=== PATIENT | male | born 1985 | race Hispanic/Latino ===

== ENCOUNTER → 2023-07-01 | Emergency (ER) | payer SELFPAY ==
[~2023-07-01] MED LIST: CEFTRIAXONE 1000 MG/VIAL ONE; KETOROLAC 30 MG/ML INJ ONE; MORPHINE 4 MG/ML SYR ONE; NA CHLORIDE 0.9% 2,000 ML ONE; ONDANSETRON 4 MG/2 ML VIAL ONE; POTASSIUM 25 MEQ EFFERV TAB ONE; PROMETHAZINE INJ 25 MG/ML AMP ONE
--- OUTSIDE RECORDS SUMMARY | 2023-07-01 01:48 | XMS REPORT | Continuity of Care Document ---
Author Name Unknown Address [address] [place] [address] [facility] Address [address] [place] [address] [address] [place] [address] Care Team Providers Care Senior Environmental Practice Leader Name Role Phone Unavailable Unavailable Unavailable Encounters Start Date/Time End Date/Time Encounter Type Admission Type Attending Clinicians Care Facility Care Department Encounter ID Source 2022-11-27 09:21:48 2022-11-27 09:21:48 Outpatient [facility] [id number] Sant[address] Clifton
[2023-07-01 02:25] LABS: Absolute Lymphocytes (CBC) 3.9 K/uL (0.7-4.9); Hematocrit 42.1 % (39.6-49.0); MCV 87.1 fL (80-100); MPV 8.4 fL (7.6-11.3); Platelets 273 thou/uL (152-406); RBC Red Blood Cell Count 4.83 M/uL (4.33-5.43)
[2023-07-01 02:52] LABS: Albumin 3.9 g/dL (3.4-5.0); Bilirubin Total 0.4 mg/dL (0.2-1.0); Potassium 3.2 mEq/L (3.5-5.1); Protein, Total 7.2 g/dL (6.4-8.2)
--- NOTE | 2023-07-01 03:02 | EDPHYS ---
Physician Documentation [facility] Name: Geraldo Dougherty Jr Age: 38 yrs Sex: Male : 1985 Arrival Date: 07/01/2023 Time: 01:45 Bed 13 Private MD: ED Physician Arya High HPI: 07/01 02:05 This 38 yrs old Male presents to ER via Ambulatory with complaints of vinay Abdominal Pain, PT IS IN ALOT OF PAIN ON THE RIGHT SIDE. 02:05 The patient presents with abdominal pain in the right upper quadrant, right lower vinay quadrant. Onset: The symptoms/episode began/occurred just prior to arrival. The patient complains of pain in the right mid back and right low back. The pain radiates to the right mid back and right low back. Modifying factors: The symptoms are alleviated by nothing. the symptoms are aggravated by nothing. The symptoms radiate to the right flank. Associated signs and symptoms: Pertinent positives: nausea. Severity of pain: At its worst the pain was moderate in the emergency department the pain is unchanged. Historical: - Allergies: 01:55 No Known Allergies; rv - Home Meds: 01:55 None [Active]; rv - PMHx: 01:55 None; rv - PSHx: 01:55 None; rv - Immunization history:: Adult Immunizations up to date. - Social history:: Smoking status: Patient denies any tobacco usage or history of. - Family history:: not pertinent. ROS: 02:05 Constitutional: Negative for fever, chills, and weight loss, Eyes: Negative for injury, vinay pain, redness, and discharge, ENT: Negative for injury, pain, and discharge, Neck: Negative for injury, pain, and swelling, Cardiovascular: Negative for chest pain, palpitations, and edema, Respiratory: Negative for shortness of breath, cough, wheezing, and pleuritic chest pain, Back: Negative for injury and pain, : Negative for injury, bleeding, discharge, and swelling, MS/Extremity: Negative for injury and deformity, Skin: Negative for injury, rash, and discoloration, Neuro: Negative for headache, weakness, numbness, tingling, and seizure, Psych: Negative for depression, anxiety, suicide ideation, homicidal ideation, and hallucinations, Allergy/Immunology: Negative for hives, rash, and allergies, Endocrine: Negative for neck swelling, polydipsia, polyuria, polyphagia, and marked weight changes, 02:05 Abdomen/GI: Positive for abdominal pain, nausea and vomiting, of the anterior aspect of right lateral abdomen, posterior aspect of right lateral abdomen, right upper quadrant and right lower quadrant, Exam: 02:05 Constitutional: This is a well developed, well nourished patient who is awake, alert, vinay and in no acute distress. Head/Face: Normocephalic, atraumatic. Eyes: Pupils equal round and reactive to light, extra-ocular motions intact. Lids and lashes normal. Conjunctiva and sclera are non-icteric and not injected. Cornea within normal limits. Periorbital areas with no swelling, redness, or edema. ENT: Nares patent. No nasal discharge, no septal abnormalities noted. Tympanic membranes are normal and external auditory canals are clear. Oropharynx with no redness, swelling, or masses, exudates, or evidence of obstruction, uvula midline. Mucous membranes moist. Neck: Trachea midline, no thyromegaly or masses palpated, and no cervical lymphadenopathy. Supple, full range of motion without nuchal rigidity, or vertebral point tenderness. No Meningismus. Chest/axilla: Normal chest wall appearance and motion. Nontender with no deformity. No lesions are appreciated. Cardiovascular: Regular rate and rhythm with a normal S1 and S2. No gallops, murmurs, or rubs. Normal PMI, no JVD. No pulse deficits. Respiratory: Lungs have equal breath sounds bilaterally, clear to auscultation and percussion. No rales, rhonchi or wheezes noted. No increased work of breathing, no retractions or nasal flaring. Back: No spinal tenderness. No costovertebral tenderness. Full range of motion. Male : Normal genitalia with no discharge or lesions. Skin: Warm, dry with normal turgor. Normal color with no rashes, no lesions, and no evidence of cellulitis. MS/ Extremity: Pulses equal, no cyanosis. Neurovascular intact. Full, normal range of motion. Neuro: Awake and alert, GCS 15, oriented to person, place, time, and situation. Cranial nerves II-XII grossly intact. Motor strength 5/5 in all extremities. Sensory grossly intact. Cerebellar exam normal. Normal gait. Psych: Awake, alert, with orientation to person, place and time. Behavior, mood, and affect are within normal limits. 02:05 Abdomen/GI: Inspection: abdomen appears normal, Bowel sounds: normal, Liver: no appreciated palpable abnormalities, Hernia: not appreciated, Vital Signs: 01:54 Weight 81.65 kg; Height 5 ft. 8 in. ; rv 01:56 BP 124 / 78; Pulse 64; Resp 16; Temp 98; Pulse Ox 99% ; rv 01:57 BP 124 / 78 Supine; Pulse 66; Resp 18; Temp 98.2(O); Pulse Ox 100% on R/A; Weight 81.65 oe kg; Height 5 ft. 8 in. ; Pain 8/10; 02:33 BP 109 / 59; Pulse 56; Pulse Ox 100% on R/A; Pain 6/10; tm6 03:07 BP 120 / 69; Pulse 66; Pulse Ox 100% on R/A; Pain 10/10; tm6 03:42 BP 112 / 72; Pulse 55; Pulse Ox 99% on R/A; Pain 7/10; tm6 01:57 Body Mass Index 27.37 (81.65 kg, 172.72 cm) oe 01:57 Pain Scale: Adult oe 02:33 Pain Scale: Adult tm6 03:07 Pain Scale: Adult tm6 03:42 Pain Scale: Adult tm6 MDM: 01:53 Patient medically screened. [facility] 02:05 Differential diagnosis: appendicitis, bowel obstruction, Cholelithiasis, vinay diverticulitis, gastritis, non-specific abd pain, pancreatitis, Peptic Ulcer Disease. Data reviewed: vital signs, nurses notes, lab test result(s), EKG, radiologic studies. Consideration of Admission/Observation Escalation of care including admission/observation considered. I considered the following discharge prescriptions or medication management in the emergency department Medications were administered in the Emergency Department. See MAR. Test considered but Not performed: Ultrasound no abd usg. 03:01 Patient medically screened. [facility] 07/01 02:05 Order name: CBC with Diff; Complete Time: 02:55 [facility] 07/01 02:05 Order name: CMP; Complete Time: 02:55 [facility] 07/01 02:05 Order name: Lipase; Complete Time: 02:55 [facility] 07/01 02:05 Order name: Urinalysis w/ reflexes 07/01 02:05 Order name: CT Stone Protocol vinay 07/01 02:05 Order name: IV Saline Lock; Complete Time: 02:06 vinay 07/01 02:05 Order name: Labs collected and sent; Complete Time: 02:21 vinay Administered Medications: 02:21 Drug: NS 0.9% IV 1000 ml IV at 1 bolus Per protocol; 1000 mL bolus Route: IV; Rate: 1 tm6 bolus; Site: right antecubital; 03:56 Follow up: IV Status: Completed infusion; IV Intake: 1000ml tm6 02:21 Drug: Ondansetron IVP 4 mg IVP once; over 2 minutes Route: IVP; Site: right antecubital;tm6 02:21 Drug: morphine IVP or IV 4 mg IVP once over 4 mins Route: IVP; Infused Over: 4 mins; tm6 Site: right antecubital; 02:21 Drug: Ketorolac IVP 30 mg IVP once Route: IVP; Site: right antecubital; tm6 02:21 Drug: NS 0.9% IV 1000 ml IV at 1 bolus Per protocol; 1000 mL bolus Route: IV; Rate: 1 tm6 bolus; Site: right antecubital; 03:56 Follow up: IV Status: Completed infusion; IV Intake: 1000ml tm6 02:21 Drug: Rocephin IV 1 grams IV at per protocol once; Given slow IV push per pharmacy tm6 instructions Route: IV; Rate: per protocol; Site: right antecubital; 03:06 Drug: morphine IVP or IV 4 mg IVP once over 4 mins Route: IVP; Infused Over: 4 mins; tm6 Site: right antecubital; 03:06 Drug: Ondansetron IVP 4 mg IVP once; over 2 minutes Route: IVP; Site: right antecubital;tm6 03:41 Drug: Promethazine IM 25 mg IM once Route: IM; Site: right deltoid; tm6 03:41 Drug: Potassium PO Effervescent Tablet 25 mEq PO once; dissolve in 4 ounces of water or tm6 juice Route: PO; Disposition Summary: 07/01/23 03:02 Discharge Ordered Notes: Location: Home vinay Problem: new vinay Symptoms: have improved vinay Condition: Stable vinay Diagnosis - Hydronephrosis with renal and ureteral calculous obstruction - 2 mm UVJ vinay - Hypokalemia vinay Followup: vinay - With: Private Physician - When: 2 - 3 days - Reason: Recheck today's complaints, Continuance of care, Re-evaluation by your physician Followup: vinay - With: Brandon Gonzalez MD - When: 2 - 3 days - Reason: Recheck today's complaints, Re-evaluation by your physician Discharge Instructions: - Discharge Summary Sheet vinay - Potassium Content of Foods vinay - Kidney Stones vinay - Kidney Stones, [id number] vinay - Hydronephrosis vinay - Dietary Guidelines to Help Prevent Kidney Stones vinay - Hypokalemia vinay Forms: - Medication Reconciliation Form vinay - Thank You Letter vinay - Antibiotic Education vinay - Prescription Opioid Use vinay - Patient Portal Instructions vinay - Leadership Thank You Letter vinay - Work release form tm6 Prescriptions: - acetaminophen-codeine 300-30 mg Oral tablet - take 2 tablet ORAL route every 6 hours as needed for pain; 20 tablet; Refills: vinay 0, Product Selection Permitted - ondansetron 4 mg Oral Tablet,disintegrating - take 1 tablet ORAL route every 6 to 8 hours for 5 days as needed for nausea and vinay vomiting; 20 tablet; Refills: 0, Product Selection Permitted - ketorolac 10 mg Oral tablet - take 1 tablet ORAL route every 6 hours for 3 days as needed for pain; 12 vinay tablet; Refills: 0, Product Selection Permitted - Cipro 500 mg Oral Tablet - take 1 tablet ORAL route every 12 hours for 7 days; 14 tablet; Refills: 0, vinay Product Selection Permitted Signatures: Dispatcher [employer] Arya Witt MD MD cha Vicente, Ronaldo, RN RN Alex Palmer RN RN tm6
--- NOTE | 2023-07-01 03:02 | ER ---
Nurse's Notes [facility] Name: Geraldo Dougherty Jr Age: 38 yrs Sex: Male : 1985 Arrival Date: 07/01/2023 Time: 01:45 Bed 13 Private MD: Diagnosis: Hydronephrosis with renal and ureteral calculous obstruction-2 mm UVJ;Hypokalemia Presentation: 07/01 01:54 Chief complaint: Patient states: SUDDEN ONSET OF RLQ ABDOMINAL PAIN. DENIES rv N/V/D/FEVER. Coronavirus screen: At this time, the client does not indicate any symptoms associated with coronavirus-19. Ebola Screen: No symptoms or risks identified at this time. Initial Sepsis Screen: Does the patient meet any 2 criteria? No. Patient's initial sepsis screen is negative. Does the patient have a suspected source of infection? No. Patient's initial sepsis screen is negative. Risk Assessment: Do you want to hurt yourself or someone else? Patient reports no desire to harm self or others. Onset of symptoms was July 01, 2023. 01:54 Method Of Arrival: Ambulatory rv 01:54 Acuity: MURALI 3 rv Triage Assessment: 01:55 General: Appears uncomfortable, Behavior is calm, cooperative. Pain: Complains of pain rv in right lower quadrant. Neuro: Level of Consciousness is awake, alert, obeys commands, Oriented to person, place, time, situation. Cardiovascular: Capillary refill < 3 seconds Patient's skin is warm and dry. Respiratory: Airway is patent Respiratory effort is even, unlabored. GI: Abdomen is round non-distended, Reports lower abdominal pain. : No signs and/or symptoms were reported regarding the genitourinary system. Derm: Skin is intact. Historical: - Allergies: 01:55 No Known Allergies; rv - Home Meds: 01:55 None [Active]; rv - PMHx: :55 None; rv - PSHx: :55 None; rv - Immunization history:: Adult Immunizations up to date. - Social history:: Smoking status: Patient denies any tobacco usage or history of. - Family history:: not pertinent. Screenin:56 [facility] ED Fall Risk Assessment (Adult) History of falling in the last 3 months, rv including since admission No falls in past 3 months (0 pts) Score/Fall Risk Level 0 - 2 = Low Risk Oriented to surroundings, Maintained a safe environment, Educated pt \T\ family on fall prevention, incl call for assistance when getting out of bed, Assessed \T\ reinforced patient's understanding of fall precautions. Abuse screen: Denies threats or abuse. Denies injuries from another. Nutritional screening: No deficits noted. Tuberculosis screening: No symptoms or risk factors identified. Assessment: 01:57 General: Appears distressed, uncomfortable, Behavior is calm, cooperative. Pain: tm6 Complains of pain in right lower quadrant Pain currently is 8 out of 10 on a pain scale. Pain began 1 hour ago. Neuro: Level of Consciousness is awake, alert, obeys commands, Oriented to person, place, time, situation. Cardiovascular: Capillary refill < 3 seconds Patient's skin is warm and dry. Respiratory: Airway is patent Respiratory effort is even, unlabored, Respiratory pattern is regular, symmetrical. GI: Abdomen is tender to palpation in right lower quadrant. : No signs and/or symptoms were reported regarding the genitourinary system. EENT: No signs and/or symptoms were reported regarding the EENT system. Derm: No signs and/or symptoms reported regarding the dermatologic system. Musculoskeletal: No signs and/or symptoms reported regarding the musculoskeletal system. 03:00 Reassessment: No changes from previously documented assessment. tm6 03:41 GI: Bowel sounds present X 4 quads. tm6 03:41 Reassessment: No changes from previously documented assessment. Patient states symptoms tm6 have not improved. Vital Signs: 01:54 Weight 81.65 kg; Height 5 ft. 8 in. ; rv 01:56 BP 124 / 78; Pulse 64; Resp 16; Temp 98; Pulse Ox 99% ; rv 01:57 BP 124 / 78 Supine; Pulse 66; Resp 18; Temp 98.2(O); Pulse Ox 100% on R/A; Weight 81.65 oe kg; Height 5 ft. 8 in. ; Pain 8/10; 02:33 BP 109 / 59; Pulse 56; Pulse Ox 100% on R/A; Pain 6/10; tm6 03:07 BP 120 / 69; Pulse 66; Pulse Ox 100% on R/A; Pain 10/10; tm6 03:42 BP 112 / 72; Pulse 55; Pulse Ox 99% on R/A; Pain 7/10; tm6 01:57 Body Mass Index 27.37 (81.65 kg, 172.72 cm) oe 01:57 Pain Scale: Adult oe 02:33 Pain Scale: Adult tm6 03:07 Pain Scale: Adult tm6 03:42 Pain Scale: Adult tm6 ED Course: 01:50 Patient arrived in ED. gm2 01:53 Arya High MD is Attending Physician. vinay 01:54 Hammad Bagley RN is Primary Nurse. rv 01:55 Triage completed. rv 01:55 Arm band placed on right wrist. rv 01:56 Patient has correct armband on for positive identification. Client placed on continuous rv cardiac and pulse oximetry monitoring. NIBP monitoring applied. 01:56 No provider procedures requiring assistance completed. rv 01:57 Alex Palmer, CAROL is Primary Nurse. tm6 01:57 Provided Education on: plan of care. tm6 02:38 CT Stone Protocol In Process Unspecified. EDMS 03:01 Brandon Gonzalez MD is Referral Physician. vinay 03:56 IV discontinued, intact, bleeding controlled, No redness/swelling at site. Pressure tm6 dressing applied. Administered Medications: 02:21 Drug: NS 0.9% IV 1000 ml IV at 1 bolus Per protocol; 1000 mL bolus Route: IV; Rate: 1 tm6 bolus; Site: right antecubital; 03:56 Follow up: IV Status: Completed infusion; IV Intake: 1000ml tm6 02:21 Drug: Ondansetron IVP 4 mg IVP once; over 2 minutes Route: IVP; Site: right antecubital;tm6 02:21 Drug: morphine IVP or IV 4 mg IVP once over 4 mins Route: IVP; Infused Over: 4 mins; tm6 Site: right antecubital; 02:21 Drug: Ketorolac IVP 30 mg IVP once Route: IVP; Site: right antecubital; tm6 02:21 Drug: NS 0.9% IV 1000 ml IV at 1 bolus Per protocol; 1000 mL bolus Route: IV; Rate: 1 tm6 bolus; Site: right antecubital; 03:56 Follow up: IV Status: Completed infusion; IV Intake: 1000ml tm6 02:21 Drug: Rocephin IV 1 grams IV at per protocol once; Given slow IV push per pharmacy tm6 instructions Route: IV; Rate: per protocol; Site: right antecubital; 03:06 Drug: morphine IVP or IV 4 mg IVP once over 4 mins Route: IVP; Infused Over: 4 mins; tm6 Site: right antecubital; 03:06 Drug: Ondansetron IVP 4 mg IVP once; over 2 minutes Route: IVP; Site: right antecubital;tm6 03:41 Drug: Promethazine IM 25 mg IM once Route: IM; Site: right deltoid; tm6 03:41 Drug: Potassium PO Effervescent Tablet 25 mEq PO once; dissolve in 4 ounces of water or tm6 juice Route: PO; Medication: 01:56 VIS not applicable for this client. rv Intake: 03:56 IV: 1000ml; Total: 1000ml. tm6 03:56 IV: 1000ml; Total: 2000ml. tm6 Outcome: 03:02 Discharge ordered by . vinay 03:55 Discharged to home ambulatory, with family, tm6 03:55 Condition: stable 03:55 Discharge instructions given to patient, family, Instructed on discharge instructions, follow up and referral plans. medication usage, Demonstrated understanding of instructions, follow-up care, medications, Prescriptions given X 4, 03:56 Patient left the ED. tm6 Signatures: Dispatcher [employer] EDArya Brown MD MD cha Espinosa, [place] oe Vicente, Ronaldo, RN RN Melonie Mahan Tawney, RN RN tm6
[2023-07-01 03:08] LABS: Specific Gravity 1.022 (1.005-1.030); Urine Bacteria None Seen /HPF (<20); Urine Bilirubin NEGATIVE (Negative); Urine Blood 1+ (Negative); Urine Clarity Clear (Clear); Urine Color Light-Yellow (Yellow); Urine Glucose NEGATIVE (Negative); Urine Mucus Slight /HPF (None Seen); Urine Protein NEGATIVE (Negative); Urine RBC 21-50 /HPF (None Seen); Urine Sperm Present (None Seen); Urine Urobilinogen Normal (Normal)
[2023-07-01 05:11] VITALS: TEMP 98.2
[2023-07-01 05:22] VITALS: BP 112/72; O2SAT 99
--- NOTE | 2023-07-01 12:38 | RAD REPORT ---
EXAM DESCRIPTION: CT - Stone Protocol - 07/01/2023 7:21 am CLINICAL HISTORY: The patient is 38 years old and is Male; ABD PAIN TECHNIQUE: Axial computed tomography images of the abdomen and pelvis without intravenous contrast. Sagittal and coronal reformatted images were created and reviewed. This CT exam was performed usi ng one or more of the following dose reduction techniques: automated exposure control, adjustment o f the mA and/or kV according to patient size, and/or use of iterative reconstruction technique. COMPARISON: No relevant prior studies available. FINDINGS: Lung bases: Unremarkable. No mass. No consolidation. ABDOMEN: Liver: Diffuse hepatic steatosis. Gallbladder and bile ducts: Unremarkable. No calcified stones. No ductal dilation. Pancreas: Unremarkable. No ductal dilation. Spleen: Unremarkable. No splenomegaly. Adrenals: Unremarkable. No mass. Kidneys and ureters: 2 mm stone in the lower right ureter near the right UVJ. Mild right hydroure ter. Nonobstructing calcifications in the kidneys. Stomach and bowel: Unremarkable. No obstruction. No mucosal thickening. PELVIS: Appendix: No findings to suggest acute appendicitis. Bladder: Unremarkable. Reproductive: Unremarkable as visualized. ABDOMEN and PELVIS: Intraperitoneal space: Unremarkable. No free air. No significant fluid collection. Bones/joints: No acute fracture. No dislocation. Soft tissues: Unremarkable. Vasculature: Unremarkable. No abdominal aortic aneurysm. Lymph nodes: Unremarkable. No enlarged lymph nodes. IMPRESSION: 2 mm stone in the lower right ureter near the right UVJ. Mild right hydroureter. Electronically signed by: Florencio Estes MD 07/01/2023 02:55 AM PRINTING EQUIPMENT MECHANIC APPRENTICE Due to temporary technical issues with the PACS/Fluency reporting system, reports are being signed by the in house radiologist without review as a courtesy to ensure prompt reporting. The interpreting r adiologist is fully responsible for the content of the report.
== END ==
LOC: ER 01:45
DX: N13.2 Hydronephrosis with renal and ureteral calculous obstruction (principal); E87.6 Hypokalemia
CPT/HCPCS: 36415; 74176; 76377; 80053; 81001; 83690; 85025; 96361; 96372; 96374; 96375; 99284; J0696; J2405; J2550; J7030